=== PATIENT | female | born 1965 | race Two or more races ===

== ENCOUNTER 2024-05-01 07:41 | Inpatient (IN) | payer BC ==
[~2024-05-01] VITALS: Ht 149.9 cm; Wt 72.0 kg
[2024-05-01] MEDS: CELECOXIB 100 MG CAP ONE (07:28)
[2024-05-01] MEDS: PREGABALIN CAPSULE 75 MG CAP ONE ×2 (07:28→08:35)
[2024-05-01] MEDS: ceFAZolin 2 GM/D5W100ml 100 ML IV ONE (07:28)
[2024-05-01] MEDS: ACETAMINOPHEN IV 100 ML IV ONE (07:28)
[2024-05-01] MEDS ORDERED: MIDAZOLAM HCL 2MG/2ML 2ml VIAL (1mg/ml) ONE (08:23)
[2024-05-01] MEDS ORDERED: fentaNYL CITRATE 100 MCG/2 ML VL ONE (08:23)
[2024-05-01] MEDS ORDERED: PROPOFOL 10 MG/ML 20 ML IV ONE (08:24)
[2024-05-01] MEDS ORDERED: GLYCOPYRROLATE 0.2 MG/ML 1ML VIAL ONE (08:24)
[2024-05-01] MEDS ORDERED: ONDANSETRON HCL 4 MG/2 ML VIAL ONE (08:24)
[2024-05-01] MEDS ORDERED: ePHEDrine SULFATE 50 MG/ML AMP ONE (08:24)
[2024-05-01] MEDS: TRANEXAMIC ACID 20 ML ONE (08:41)
[2024-05-01] MEDS: CEFEPIME 1GM/ 50ML 50 ML IV ONE (08:58)
[2024-05-01] MEDS ORDERED: OXYCODONE W/ ACETAMINOPHEN 5/325MG TABLET PO PRN (09:15)
[2024-05-01] MEDS: ceFAZolin 1GM/50ML 50 ML IV SCH (09:15)
[2024-05-01] MEDS: LACTATED RINGER'S 1,000 ML IV SCH (09:15)
[2024-05-01] MEDS ORDERED: ONDANSETRON HCL 4 MG/2 ML VIAL IV PRN (09:15)
[2024-05-01] MEDS ORDERED: HYDROmorphone HCL 2 MG/ML VL/or syr IV PRN (09:15)
[2024-05-01] MEDS ORDERED: MORPHINE SULFATE INJ 2 MG/ml SYRG IV PRN (09:15)
[2024-05-01] MEDS ORDERED: NITROGLYCERIN 0.4 MG SL TAB SL PRN (09:15)
[2024-05-01] MEDS: CELECOXIB 100 MG CAP PO ONE (09:30)
[2024-05-01] MEDS: ACETAMINOPHEN IV 1000 MG/100ML (10MG/ML) IV ONE (09:30)
[2024-05-01] MEDS: PREGABALIN CAPSULE 75 MG CAP PO ONE (09:30)
[2024-05-01] MEDS: VANCOMYCIN HCL 1000 MG VL ONE (09:37)
[2024-05-01] MEDS: CEFEPIME 1GM/ 50ML 50 ML IV SCH (10:00)
[2024-05-01] MEDS: DOCUSATE SOD 100 MG CAP PO SCH (10:00)
[2024-05-01] MEDS: ENOXAPARIN SOD 40 MG/0.4 ML SYRINGE SC SCH (10:00)
[2024-05-01] MEDS: KETOROLAC TROMETH 30 MG/ML 1ML VIAL ONE (10:40)
[2024-05-01] MEDS: BUPIVACAINE 0.25% INJ 50ML VIAL ONE (10:40)
[2024-05-01] MEDS: MORPHINE SULF PF 5 MG/10 ML VIAL ONE (10:41)
[2024-05-01 11:15] VITALS: PULSE 100; RESP 16; O2SAT 95
[2024-05-01] MEDS ORDERED: DexAMETHasone SOD PHOS 10MG/1ML VIAL INJ IV PRN (11:30)
[2024-05-01] MEDS ORDERED: diphenhdrAMINE HCL 50 MG/1 ML VL IV PRN (11:30)
[2024-05-01] MEDS ORDERED: NALOXONE HCL 0.4 MG/ML VIAL IV PRN (11:30)
[2024-05-01] MEDS: ONDANSETRON HCL 4 MG/2 ML VIAL IV PRN (11:45)
--- NOTE | 2024-05-01 13:13 | DVH ---
EXAM: XY PELVIS AP CLINICAL INDICATION: sp Left ANA TECHNIQUE: XY PELVIS AP Comparison: None FINDINGS/IMPRESSION: There is no evidence of acute fracture or dislocation. Left hip arthroplasty. The alignment is anatomical. There is no radiopaque foreign body.
[2024-05-01] MEDS: SODIUM CHLOR 0.9% PF (SALINE LOCK) 10ML VIAL/SYR IV SCH (14:00)
[2024-05-01] MEDS ORDERED: FAMOTIDINE (10MG/ML) 2ML VL IV ONE (14:30)
[2024-05-01] MEDS: FAMOTIDINE (10MG/ML) 2ML VL IV ONE (14:30)
[2024-05-01 16:22] VITALS: BP 97/66; PULSE 70; RESP 18; TEMP 97.3; O2SAT 97
[2024-05-01] MEDS: ENOXAPARIN SOD 30 MG/0.3 ML SYRINGE SC ONE (17:14)
[2024-05-01 20:00] VITALS: PULSE 138; RESP 20; O2SAT 93
[2024-05-01 21:00] VITALS: BP 92/59; PULSE 67; RESP 20; TEMP 97.8; O2SAT 93
[2024-05-02] VITALS (9 sets, daily range): BP systolic 80–117; BP diastolic 46–63; PULSE 58–93; RESP 18–20; TEMP 97.6–98.5; O2SAT 90–95
--- NOTE | 2024-05-02 06:07 | DVHOP2 ---
Operative Report - 2 Report Details Date: 05/01/24 Preop Diagnosis: Left hip osteoarthritis Postop Diagnosis: Left hip osteoarthritis Surgeon: Per Castellanos DO/ Navi Ramon MD Contract Preparer: Dane CUETO Anesthesiologist: Jac MORENO Anesthesia: General, Regional Implant: [employer] see implant log Consent: The patient was informed of the risks and benefits of the procedure. These include but are not limited to complications of anesthesia, postoperative infection, incomplete relief of symptoms, recurrence of symptoms, damage to bloo d vessels, nerves and tendons, deep venous thrombosis, pulmonary embolism and possible need for repeat surgery in the future. Estimated Blood Loss: 300cc Name of Procedure Performed Left total hip arthroplasty Procedure Details Procedure Details: FINDINGS: Extensive degenerative disease with grade IV changes INDICATION: This patient has failed non-operative treatments for hip arthritis and is now indicated for a total hip replacement. Preoperatively in the waiting area as well as in the office, I had a long discussion with the patient regarding the plan, the expected outcome, the risks, benefits, and alternatives of surgery. The risks include, but are not limited to, infection (which may require future surgery and removal of implants) , bleeding (which may require a transfusion), damage to nerves, arteries, veins, tendons, muscles and other adjacent structures. Also discussed the possibilities of dislocation, leg-length discrepancy, intraoperative fractures, implant loosening, heterotopic bone formation, and revision for variety of reasons, and medical complications etc. This was discussed at length and consent has been obtained. DESCRIPTION OF PROCEDURE: In the preoperative holding area, the consent was reviewed and the appropriate extremity was verified by the patient and marked with my initials. The patient was then transferred to the operating theatre. Appropriate anesthetia was induced. All bony prominences were well padded. A time out was performed verifying the side and site of surgery according to standard protocol. Preoperative antibiotics were given. Tranexamic acid was given. The patient was then placed in the lateral decubitus position and fixed with rigid pelvic fixation. All bony prominences were well padded and an axillary roll was placed. The affected hip area was then prepped and draped in the usual sterile fashion. We made a standard posterolateral incision sharply through the skin and carried our dissection down through subcutaneous tissue to the underlying fascia achieving hemostasis where necessary. We incised the fascia in line with our incision. We identified and protected the sciatic nerve. We took down the external rotators and hip capsule from their insertion into the greater trochanter, tagged them and retracted them posteriorly for further protection of the sciatic nerve. We then dislocated the femoral head and performed an osteotomy of the femoral neck in accordance with our pre-operative plan. The labrum was excised with a long-handle knife, and we exposed the acetabular rim and cotyloid fossa. We then reamed up to our final size in accordance with the preoperative plan. We copiously irrigated and then impacted the final cup into position. We placed acetabular dome screws into the posterior-superior quadrant in the usual fashion. We irrigated the cup and impacted the liner, checking to make sure it was well seated. Attention was then turned to the femur. We used a box osteotome followed by a canal finder to gain entry to the canal. Intramedullary contents were suctioned and care was taken to ensure they did not touch the tissues. We sequentially reamed until good cortical contact, then broached up to out final size. We tr ialed with the appropriate femoral neck and head and reduced the hip. The hip was taken through a full range of motion. The hip soft tissues were examined in extension and external rotation, the anterior capsule and IT band were palpated, and combined anteversion was determined to be 40 degrees. The hip was stable at maximum flexion, at 90 degrees of flexion and 45 degrees of internal rotation and the position of sleep. The hip was then dislocated and trial components removed. We copiously irrigated the wound and impacted the final femoral stem into position. The femoral head was impacted onto a clean and dry trunion and confirmed to be seated. The hip was reduced ensuring to tissues in the acetabular cup. We again brought it through a full functional range of motion and there was no evidence for dislocation, instability, or impingement. The checkpoint was removed. A dilute betadine solution (17.5mL in 500mL saline) was used to wash the joint and left to sit for 3 minutes. This was then irrigated out with copious amounts of pulse lavage. We sprinkled 1g vancomycin powder below the fascia and 1g above the fascia. We copiously irrigated the wound and soft tissues. The short external rotators and capsule were repaired to the greater trochanter through drill holes, and the quadratus was repaired. We palpated the sciatic nerve in continuity without tension. The fascia was closed with vicryl and a barbed suture. We closed over the fascia with vicryl suture and re-approximated the skin with eunice. . A sterile dressing was placed. We returned the patient to the supine position. We verified all lower extremity compartments were soft and compressible and that we had intact distal pulses and checked our leg length restorationism. Condition Good Disposition Still a Patient NAVI RAMON MD May 02, 2024 06:07
[2024-05-02 07:34] LABS: Hematocrit 34.3 % (36.0-46.0); Hemoglobin 11.1 g/dL (12.2-16.2)
[2024-05-02 07:50] LABS: Alanine Aminotransferase 11 U/L (7-40); Albumin 3.7 g/dL (3.2-4.8); Alkaline Phosphatase 71 U/L (46-116); Anion Gap 8 (5-15); Aspartate Aminotransferase 16 U/L (13-40); BUN/Creatinine Ratio 24.8 (10.0-20.0); Calcium 9.5 mg/dL (8.7-10.4); Carbon Dioxide 24 mmol/L (20-31); Potassium 4.7 mmol/L (3.5-5.1); Sodium 140 mmol/L (136-145); Total Protein 5.9 g/dL (5.7-8.2)
[2024-05-02 07:51] LABS: Bilirubin, Total 0.4 mg/dL (0.2-1.0)
[2024-05-02 07:53] LABS: Blood Urea Nitrogen 25 mg/dL (9-23); Chloride 108 mmol/L (98-107); Glucose 119 mg/dL (74-106)
--- NOTE | 2024-05-02 08:09 | DVHPN2 ---
Progress Note Date Seen: May 02, 2024 Medical Necessity Reason Pt with a Central, PICC or Fol: No Subjective Patient reports: Feels worse (Patient is complaining of localized pain in the left hip as expected) Objective vital signs Vital Sign Date Time Temp Pulse Resp B/P (MAP) Pulse Ox O2 Delivery O2 Flow Rate FiO2 05/02/24 05:00 97.6 64 19 93/63 (73) 93 97.6 05/01/24 20:00 Nasal Cannula* 3 32 Total Intake and Output 05/01/24 05/01/24 05/02/24 15:00 23:00 07:00 Intake Total 100 ml 101.6 ml 400 ml Balance 100 ml 101.6 ml 400 ml medications Current Medications Medications Dose Ordered Sig/Melissa Route Start Time Stop Time Status Last Admin Dose Admin Lactated Ringer's 1,000 ml @ 100 mls/hr Q10H IV 05/01/24 09:15 05/02/24 05:31 100 MLS/HR Sodium Chloride 10 ml Q8HR IV 05/01/24 14:00 05/02/24 05:31 10 ML Oxycodone/ Acetaminophen 1 tab Q4HP PRN PO 05/01/24 09:15 Hydromorphone HCl 1 mg Q2HP PRN IV 05/01/24 09:15 Docusate Sodium 100 mg Q12HR PO 05/01/24 10:00 05/01/24 21:50 100 MG Enoxaparin Sodium 40 mg DAILY SC 05/01/24 10:00 Hold Nitroglycerin 0.4 mg Q5MINP PRN SL 05/01/24 09:15 Morphine Sulfate 2 mg Q30M PRN IV 05/01/24 09:15 Cefepime HCl 50 ml @ 12.5 mls/hr DAILY IV 05/01/24 10:00 Diphenhydramine HCl 25 mg Q4HP PRN IV 05/01/24 11:30 Ondansetron HCl 4 mg Q4HP PRN IV 05/01/24 11:30 05/02/24 01:31 4 MG Ketorolac Tromethamine 30 mg Q6HP PRN IV 05/01/24 11:30 05/06/24 11:29 Examination: GENERAL:Normal, MSK:Abnormal laboratory and microbiology Laboratory Tests 05/02/24 05:33 Test 05/02/24 05:33 Range/Units Serum Glucose 119 H 74-106 mg/dL Problem List/Assessment/Plan Problem List/Assessment/Plan 58 year old female who is s/p Left ANA POD 1 1. Pain control 2. DVT ppx 3. WBAT LLE with walker and posterior hip precautions 4. Physical therapy with posterior hip protocol 5. Abduction pillow at night when sleeping Plan discussed with: Patient Date of Service: May 02, 2024 Billing Provider: HUGO RAMON MD Common Visit Codes: NOT BILLABLE KARISSA PATTERSON NP May 02, 2024 08:09
[2024-05-02] MEDS: ENOXAPARIN SOD 40 MG/0.4 ML SYRINGE SC ONE (13:50)
[2024-05-02] MEDS: KETOROLAC TROMETH 30 MG/ML 1ML VIAL IV PRN (13:51)
[2024-05-02] MEDS ORDERED: MORPHINE SULFATE INJ 2 MG/ml SYRG IV PRN (14:15)
--- NOTE | 2024-05-02 14:20 | DVHINCON2 ---
Date Seen: May 02, [address] RAMON Family History: Cardiovascular disease G8 FATHER Allergies: Coded Allergies: Codeine (Verified Adverse Reaction, Severe, 05/02/24) Severe Headache Sulfa Antibiotics (Verified Adverse Reaction, Severe, 05/02/24) Vomiting Home Meds No Active Prescriptions or Reported Meds Vital Signs Vital Signs Date Time Temp Pulse Resp B/P (MAP) Pulse Ox O2 Delivery O2 Flow Rate FiO2 05/02/24 13:00 98.5 74 18 91/47 (62) 90 98.5 05/02/24 08:00 Nasal Cannula* 3 32 Labs/Diagnostic Data Labs Test 05/02/24 05:33 Range/Units Hemoglobin 11.1 L 12.2-16.2 g/dL Hematocrit 34.3 L 36.0-46.0 % Sodium Level 140 136-145 mmol/L Potassium Level 4.7 3.5-5.1 mmol/L Chloride Level 108 H 98-107 mmol/L Carbon Dioxide Level 24 20-31 mmol/L Anion Gap 8 5-15 Blood Urea Nitrogen 25 H 9-23 mg/dL Creatinine 1.01 0.550-1.02 mg/dL Glomerular Filtration Rate Calc 64 >90 mL/min BUN/Creatinine Ratio 24.8 H 10.0-20.0 Serum Glucose 119 H 74-106 mg/dL Calcium Level 9.5 8.7-10.4 mg/dL Total Bilirubin 0.4 0.2-1.0 mg/dL Aspartate Amino Transferase (AST) 16 13-40 U/L Alanine Aminotransferase (ALT) 11 7-40 U/L Alkaline Phosphatase 71 46-116 U/L Total Protein 5.9 5.7-8.2 g/dL Albumin 3.7 3.2-4.8 g/dL Assessment SEE DICTATED NOTE Plan discussed with: Patient Date of Service: May 02, 2024 Billing Provider: ZOIE BOWMAN MD Common Visit Codes: [id number] INP/OBS CARE (HIGH) ZOIE BOWMAN MD May 02, 2024 14:20
[2024-05-02] MEDS: LACTATED RINGER'S 250 ML IV ONE (15:00)
--- NOTE | 2024-05-02 15:22 | DVHINCON2 ---
DATE OF CONSULTATION: 05/02/2024 INTERNAL MEDICINE CONSULT HISTORY OF PRESENT ILLNESS: The patient is a 58-year-old lady who was admitted after she underwent surgery on the left hip for DJD of the hip. The patient at this time complains of pain in the left hip. No history of nausea or vomiting. No shortness of breath. The patient has not gotten up at this point in view of low blood pressure. PAST MEDICAL HISTORY: No significant illness in the past. MEDICATIONS: She takes no medications on a regular basis. ALLERGIES: CODEINE AND SULFA. SOCIAL HISTORY: Smokes about a quarter pack a day. Denies alcohol intake. FAMILY HISTORY: Negative. PHYSICAL EXAMINATION: GENERAL: The patient is awake, alert. VITAL SIGNS: Temperature 97.6, pulse 63 per minute, blood pressure 91/47. SHEENT: Unremarkable. NECK: There is no JVD, no pedal edema. LUNGS: Equal bilaterally. No added sounds. CARDIOVASCULAR: S1, S2 are regular. No murmurs. ABDOMEN: Soft. There is no organomegaly. NEUROLOGIC: Nonfocal. MUSCULOSKELETAL: There is a dressing at the site of the left hip surgery. ASSESSMENT AND PLAN: * Hypotension, for which the patient will be given a bolus IV fluids and her narcotic dose will be adjusted. * Obesity. * Tobacco abuse for which she has been advised to quit. She refused nicotine patch. Time spent was 11 minutes. * Status post left hip surgery for degenerative joint disease of the hip. The patient will receive physical therapy as well as DVT prophylaxis. MD GISELL Cook/CAROLYN TID: [id number] RECEIPT: [id number]
[2024-05-02 23:08] LABS: Urine Bacteria None Seen /hpf (None Seen)
[2024-05-02 23:20] LABS: Urine Blood Negative /uL (Negative); Urine Clarity Clear (Clear); Urine Color Light-Yellow (Yellow); Urine Protein, UAD Negative (Negative); Urine Specific Gravity 1.017 (1.001-1.035); Urine Squamous Epithelial Cell FEW /hpf (<5); Urine Urobilinogen Normal (Negative); Urine WBC 2 /HPF (0-5); Urine pH 5.5 (5.0-9.0)
[2024-05-03 01:00] VITALS: BP 123/70; PULSE 91; RESP 20; TEMP 98.2; O2SAT 94
[2024-05-03 05:00] VITALS: BP 131/78; PULSE 84; RESP 20; TEMP 98.2; O2SAT 91
[2024-05-03 06:48] LABS: Basophils # (auto) 0.1 10 ^3/uL (0-0.2); Basophils % (auto) 0.5 % (0.0-2.0); Eosinophils # (auto) 0.2 10 ^3/uL (0-0.8); Eosinophils % (auto) 2.1 % (0.0-7.0); Hematocrit 34.1 % (36.0-46.0); Hemoglobin 11.4 g/dL (12.2-16.2); Lymphocytes # (auto) 3.9 10 ^3/uL (0.4-5.4); Mean Corpuscular Hemoglobin 30.2 pg (28.0-32.0); Mean Corpuscular Hgb Conc. 33.6 g/dL (32.0-36.0); Mean Corpuscular Volume 89.9 fL (80.0-100.0); Monocytes # (auto) 0.9 10 ^3/uL (0-1.3); Monocytes % (auto) 8.5 % (0.0-12.0); Neutrophils # (auto) 5.7 10 ^3/uL (1.6-8.6); Neutrophils % (auto) 52.9 % (37.0-80.0); Nucleated Red Blood Cells % 0.1 %; Platelet Count (auto) 189 10^3/uL (140-450); Red Blood Cells 3.79 10^6/uL (4.0-5.20); Red Cell Distribution Width 13.1 % (11.8-14.3); White Blood Cell 10.8 10^3/uL (4.4-10.8)
[2024-05-03 07:01] LABS: Anion Gap 6 (5-15); Calcium 9.5 mg/dL (8.7-10.4); Carbon Dioxide 27 mmol/L (20-31); Potassium 4.2 mmol/L (3.5-5.1); Sodium 142 mmol/L (136-145)
[2024-05-03 07:06] LABS: Chloride 109 mmol/L (98-107)
[2024-05-03 07:07] LABS: Glucose 95 mg/dL (74-106)
[2024-05-03 07:08] LABS: BUN/Creatinine Ratio 26.7 (10.0-20.0)
[2024-05-03 07:09] LABS: Blood Urea Nitrogen 23 mg/dL (9-23)
[2024-05-03 08:00] VITALS: PULSE 91; PULSE 96; RESP 16; O2SAT 96
[2024-05-03 08:30] VITALS: BP 141/77; PULSE 89; RESP 16; TEMP 97.9; O2SAT 96
--- NOTE | 2024-05-03 09:17 | DVHPN2 ---
Progress Note Date Seen: May 03, 2024 Medical Necessity Reason Pt with a Central, PICC or Fol: No Subjective Patient reports: No new complaints Objective vital signs Vital Sign Date Time Temp Pulse Resp B/P (MAP) Pulse Ox O2 Delivery O2 Flow Rate FiO2 05/03/24 05:00 98.2 84 20 131/78 (95) 91 98.2 05/02/24 20:00 Nasal Cannula* 3 32 Total Intake and Output 05/02/24 05/02/24 05/03/24 15:00 23:00 07:00 Intake Total 50 ml 718 ml 900 ml Output Total 200 ml Balance 50 ml 718 ml 700 ml medications Current Medications Medications Dose Ordered Sig/Melissa Route Start Time Stop Time Status Last Admin Dose Admin Lactated Ringer's 1,000 ml @ 100 mls/hr Q10H IV 05/01/24 09:15 05/02/24 15:16 100 MLS/HR Sodium Chloride 10 ml Q8HR IV 05/01/24 14:00 05/03/24 05:29 10 ML Docusate Sodium 100 mg Q12HR PO 05/01/24 10:00 05/02/24 21:37 100 MG Enoxaparin Sodium 40 mg DAILY SC 05/01/24 10:00 Nitroglycerin 0.4 mg Q5MINP PRN SL 05/01/24 09:15 Morphine Sulfate 2 mg Q30M PRN IV 05/01/24 09:15 Cefepime HCl 50 ml @ 12.5 mls/hr DAILY IV 05/01/24 10:00 05/02/24 09:07 12.5 MLS/HR Diphenhydramine HCl 25 mg Q4HP PRN IV 05/01/24 11:30 Ondansetron HCl 4 mg Q4HP PRN IV 05/01/24 11:30 05/02/24 01:31 4 MG Ketorolac Tromethamine 30 mg Q6HP PRN IV 05/01/24 11:30 05/06/24 11:29 05/03/24 08:50 30 MG Morphine Sulfate 2 mg Q4HPRN PRN IV 05/02/24 14:15 Examination: GENERAL:Normal, MSK:Abnormal laboratory and microbiology Laboratory Tests 05/03/24 06:22 Test 05/03/24 06:22 Range/Units Serum Glucose 95 74-106 mg/dL Problem List/Assessment/Plan Problem List/Assessment/Plan 58 year old female who is s/p Left ANA POD 2 1. Pain control 2. DVT ppx 3. WBAT LLE with walker and posterior hip precautions 4. Physical therapy with posterior hip protocol 5. Abduction pillow at night when sleeping 6. patient has postop prescriptions at home as prescribed with new addition of tramadol 7. follow up in 2 weeks as scheduled on 05/17/2024 at 9:15 8. clear for discharge from orthopedic standpoint with the following discharge recommendations: POSTOPERATIVE Posterior Total Hip INSTRUCTIONS Activity: 1. You can bear as much weight as you tolerate on your hip unless specifically instructed otherwise. You may use the walking aid which you were discharged with and switch to a cane whenever you feel comfortable doing so. You should use an assistive device until you can walk comfortably without it. Keep in mind that every patient moves at their own speed of recovery so take your time. 2. A physical therapist will visit you at home. 3. Although guarantees against a dislocation do not exist, the hip was noted to be sufficiently stable in surgery. Below are motions that you should dischargenot do for 4-6 weeks, depending on the surgical approach used. If there are questions, please call the office. a. Bend forward past 90 degrees b. Sit on a regular low chair, couch, car seat etc... c. Cross your legs d. Use a regular low toilet seat. e. Sleep on your stomach or on either side. 3. High impact activity such as jumping, aerobics, tennis, and skiing are not permitted during the first 3 months after surgery. These activities can contribute to accelerated wear and should be done with caution after this time. Discuss this with your surgeon if you have questions. 4. Although a bath or whirlpool is NOT permitted during the first 2-3 weeks, you may shower as soon as you get home from the hospital provided you are able to keep your bandage clean and dry and there is no wound drainage. If you are unable to place a secured covering over your bandage bed bath/sponge bath may likely be the more appropriate option. 5. Swimming is not permitted until the wound is healed, which typically occurs approximately 3-4 weeks after surgery. Wound Management: If the wound is draining please change the gauze pad on the wound until it stops. If drainage persists past 10 days please notify our office. If there is a sticky gel dressing over your wound, you may leave this in place for as long as it is clean and dry. If it becomes loose or causes skin irritation, it is OK to remove it and place clean gauze over your wound. 1. You might notice some bruising around the surgical site, this is normal. 2. Check your temperature on a daily basis. Please note that a low-grade temp below 101 is not uncommon after surgery especially during the first 3 days. Notify the office if your temperature spikes above 101.5 after the 3 rd post-operative date. 3. Many patients experience significant swelling in the thigh, this may extend below the knee and sometimes to the ankle. Swelling increases during the first week and subsides during the following week. 4. Provided you have been on a blood thinner since surgery and have been up and about at least three times per day, the risk of a blood clot is low and this swelling is an expected part of recovery. It will largely or completely resolve by your first post-operative visit. 5. César, if present, will be removed at 2 weeks during initial post-op visit. Medications: 1. You will be discharged with pain medication, Aspirin as a blood thinner and sometimes an anti-inflammatory medication such as Celebrex or Mobic might be prescribed. Please follow the instructions regarding these medicines as provided by your nurse at the hospital. 2. Narcotic pain medication has side effects, including constipation. Please ensure you continue to take stool softeners (Colace, Senna) while taking your pain medication to help protect against constipation. Getting up and moving around at least a few times per day helps with this also. 3. Lovenox 40 Sq x 12 days followed by one regular strength 325 mg coated aspirin daily for 4 weeks after surgery. Then, take one baby aspirin, 81 mg daily for 6 weeks more. A major, yet preventable, complication of Orthopaedic Surgery is a blood clot (DVT). It is important not to miss any doses of this important medication. 4. You should restart all of your prescription medications once discharged unless specifically instructed otherwise. 5. Herbal supplements may be restarted 2 weeks after surgery. Miscellaneous issues: 1. Driving is not permitted within the first 2 weeks. 2. Your first postoperative visit will take place 2weeks after discharge. Please call the office to arrange this appointment. 3. Antibiotic preventative treatment is required before dental or other invasive procedures. Please ask your surgeon about this at your first postoperative visit. Your hip replacement contains metal which may activate metal detectors. You may wish to carry a letter from your surgeon to communicate this to security personnel. If you experience chest pain, shortness of breath or severe painful calf swelling, go to the nearest emergency room to be evaluated. Please call our office once your situation is stabilized. Plan discussed with: Patient Date of Service: May 03, 2024 Billing Provider: HUGO RAMON MD Common Visit Codes: NOT BILLABLE KARISSA PATTERSON NP May 03, 2024 09:17
--- NOTE | 2024-05-03 13:47 | DVHDS2 ---
Discharge Summary Date of Admission May 01, 2024 at 12:02 Date of Discharge: May 03, 2024 Labs/Diagnostic Data: Laboratory Results Test 05/03/24 06:22 05/02/24 23:08 05/02/24 05:33 White Blood Count 10.8 10^3/uL (4.4-10.8) Red Blood Count 3.79 10^6/uL (4.0-5.20) Hemoglobin 11.4 g/dL (12.2-16.2) Hematocrit 34.1 % (36.0-46.0) Mean Corpuscular Volume 89.9 fL (80.0-100.0) Mean Corpuscular Hemoglobin 30.2 pg (28.0-32.0) Mean Corpuscular Hemoglobin Concent 33.6 g/dL (32.0-36.0) Red Cell Distribution Width 13.1 % (11.8-14.3) Platelet Count 189 10^3/uL (140-450) Mean Platelet Volume 9.7 fL (6.9-10.8) Neutrophils (%) (Auto) 52.9 % (37.0-80.0) Lymphocytes (%) (Auto) 36.0 % (10.0-50.0) Monocytes (%) (Auto) 8.5 % (0.0-12.0) Eosinophils (%) (Auto) 2.1 % (0.0-7.0) Basophils (%) (Auto) 0.5 % (0.0-2.0) Neutrophils # (Auto) 5.7 10 ^3/uL (1.6-8.6) Lymphocytes # (Auto) 3.9 10 ^3/uL (0.4-5.4) Monocytes # (Auto) 0.9 10 ^3/uL (0-1.3) Eosinophils # (Auto) 0.2 10 ^3/uL (0-0.8) Basophils # (Auto) 0.1 10 ^3/uL (0-0.2) Nucleated Red Blood Cells 0.1 % Sodium Level 142 mmol/L (136-145) Potassium Level 4.2 mmol/L (3.5-5.1) Chloride Level 109 mmol/L (98-107) Carbon Dioxide Level 27 mmol/L (20-31) Anion Gap 6 (5-15) Blood Urea Nitrogen 23 mg/dL (9-23) Creatinine 0.86 mg/dL (0.550-1.02) Glomerular Filtration Rate Calc 78 mL/min (>90) BUN/Creatinine Ratio 26.7 (10.0-20.0) Serum Glucose 95 mg/dL (74-106) Calcium Level 9.5 mg/dL (8.7-10.4) Urine Color Light-yellow (Yellow) Urine Clarity Clear (Clear) Urine pH 5.5 (5.0-9.0) Urine Specific [place] 1.017 (1.001-1.035) Urine Protein Negative (Negative) Urine Ketones Negative (Negative) Urine Blood Negative /uL (Negative) Urine Nitrite Negative (Negative) Urine Bilirubin Negative (Negative) Urine Urobilinogen Normal mg/dL (Negative) Urine Leukocyte Esterase Negative /uL (Negative) Urine RBC <1 /hpf (0 - 4) Urine Microscopic WBC 2 /HPF (0-5) Urine Squamous Epithelial Cells Few /hpf (<5) Urine Bacteria None seen /hpf (None Seen) Urine Glucose Normal mg/dL (Normal) Total Bilirubin 0.4 mg/dL (0.2-1.0) Aspartate Amino Transferase (AST) 16 U/L (13-40) Alanine Aminotransferase (ALT) 11 U/L (7-40) Alkaline Phosphatase 71 U/L (46-116) Total Protein 5.9 g/dL (5.7-8.2) Albumin 3.7 g/dL (3.2-4.8) Other Laboratory Tests 05/03/24 06:22 Brief Hx & Hospital Course: SEE DICTATED NOTE Condition at Discharge: Good Final Diagnosis/Problems List Left hip osteoarthritis Discharge Disposition: Home Discharge Instruct/Medications Diet: Regular Activity: No Restrictions, As Tolerated Follow Up/Referral: FU WITH PCP/ORTHO Medications: RESUME HOME MEDS Discharge Statement: "Patient was advised to return to the ER or call 911 if any headaches, dizziness, shortness of breath, chest pain, abdominal pain, bleeding, fevers, or worsening of medical condition. Patient was counseled about treatment plan, medications, possible side effects, patientverbalized understanding. All questions were answered to the best of my ability. This discharge took greater then 30 minutes in planning, reviewing documentation, counseling the patient, and discussing with other team members." ASSESSMENT ASSESSMENT Assessment Left hip osteoarthritis Date of Service: May 03, 2024 Billing Provider: ZOIE BOWMAN MD Common Visit Codes: [id number] DISCH DAY >30min ZOIE BOWMAN MD May 03, 2024 13:47
--- NOTE | 2024-05-03 14:07 | DVHDS ---
DATE OF DISCHARGE: 05/03/2024 HISTORY OF PRESENT ILLNESS: The patient is a 58-year-old lady who was admitted after she underwent surgery on the left hip for DJD of the hips. HOSPITAL COURSE: The patient was hypotensive, that has since resolved. The patient has now been ambulating with physical therapy. She has been cleared for discharge by Orthopedics. The patient will be discharged home with outpatient physical therapy. The rest of the medications will be as per Orthopedics. FINAL DIAGNOSES: Therefore, * Obesity. * Tobacco abuse. * Hypotension, that has resolved. * Status post left hip surgery for degenerative joint disease of the hip. Time spent in discharge planning and review of plan with the patient and loss prevention consultant was 38 minutes. MD GISELL Cook/ASHLY TID: [id number] RECEIPT: [id number]
[2024-05-03 16:03] VITALS: BP 141/77; PULSE 89; RESP 16; TEMP 97.9; O2SAT 96
== END 2024-05-03 22:00 | disposition home or self-care (01) | DRG 470 ==
LOC: SUR 07:41 → OVERFLOW 09:14 → UNDOADMIN 09:14 → OVERFLOW 12:02 → TELE-WESTW 16:22
PROVIDERS: ADMIT Internal Medicine; ATTEND Internal Medicine
PROC: 0SRB0JZ Replacement of Left Hip Joint with Synthetic Substitute, Open Approach (ICD-10-PCS; principal; 2024-05-01 09:50)
DX: M16.12 Unilateral primary osteoarthritis, left hip (principal); I95.9 Hypotension, unspecified; F17.210 Nicotine dependence, cigarettes, uncomplicated; E66.9 Obesity, unspecified; Z82.49 Family history of ischemic heart disease and other diseases of the circulatory system; Z88.5 Allergy status to narcotic agent; Z88.2 Allergy status to sulfonamides; Z79.899 Other long term (current) drug therapy; Z68.30 Body mass index [BMI] 30.0-30.9, adult
CPT/HCPCS: 36415; 72170; 80048; 80053; 81001; 85014; 85018; 85025; 86850; 86900; 86901; 97110; 97116; 97163; G0378; J0131; J1885; J2250; J2405; J2704; J3490